=== PATIENT | female | born 1990 | race Two or more races ===

== ENCOUNTER → 2016-12-25 | Outpatient (REF) | payer MEDICAID ==
[2016-12-25 17:56] LABS: ALBUMIN 3.9 GM/DL (3.2-5.2); ALBUMIN/GLOBULIN RATIO 1.15 (1.00-1.93); ALKALINE PHOSPHATASE 52 U/L (45-117); ALT/SGPT 26 U/L (12-78); ANION GAP 7 MEQ/L (8-16); AST/SGOT 7 U/L (15-37); BILIRUBIN,TOTAL 1.5 MG/DL (0.2-1.0); BLOOD UREA NITROGEN 14 MG/DL (7-18); CALCIUM LEVEL 8.9 MG/DL (8.5-10.1); CARBON DIOXIDE LEVEL 26 MEQ/L (21-32); CHLORIDE LEVEL 107 MEQ/L (98-107); CHOLESTEROL LEVEL 202 MG/DL (<200); CREATININE FOR GFR 0.74 MG/DL (0.55-1.02); FREE T4 1.02 NG/DL (0.76-1.46); GLOMERULAR FILTRATION RATE > 60.0 (>60); GLUCOSE, FASTING 86 MG/DL (70-105); POTASSIUM SERUM 4.6 MEQ/L (3.5-5.1); SODIUM LEVEL 140 MEQ/L (136-145); TOTAL PROTEIN 7.3 GM/DL (6.4-8.2); TRIGLYCERIDES LEVEL 201 MG/DL (<150)
[2016-12-25 18:49] LABS: MEAN CORPUSCULAR HEMOGLOBIN 34.1 pg (27.0-33.0); MEAN CORPUSCULAR VOLUME 97.7 fl (80.0-96.0); WHITE BLOOD COUNT 10.7 K/mm3 (4.0-10.0)
== END ==
LOC: M SFHCPLAZ 11:16 → M LRY 11:24
PROVIDERS: ATTEND Nurse Practitioner Family
DX: M54.41 Lumbago with sciatica, right side (principal); I10 Essential (primary) hypertension; F33.1 Major depressive disorder, recurrent, moderate

== ENCOUNTER → 2017-04-18 | Outpatient (REF) | payer OTHER, MEDICAID | LOC: M LAB REF 10:03 | PROVIDERS: ATTEND Physician Assistant Medical | DX: N39.0 Urinary tract infection, site not specified (principal) ==

== ENCOUNTER → 2017-05-21 | Outpatient (CLI) | payer BC, OTHER, MEDICAID | LOC: M LRY 15:15 | DX: R06.2 Wheezing (principal) | CPT/HCPCS: 71046 ==

== ENCOUNTER → 2017-06-14 | Outpatient (REF) | payer MEDICAID, OTHER ==
[2017-06-14 13:56] LABS: HEMATOCRIT 40.3 % (36.0-47.0); HEMOGLOBIN 13.4 g/dl (12.0-16.0); MEAN CORPUSCULAR HEMOGLOBIN 32.9 pg (27.0-33.0); MEAN CORPUSCULAR HGB CONC 33.3 g/dl (32.0-36.5); PLATELET COUNT, AUTOMATED 276 10^3/uL (150-450); RED BLOOD COUNT 4.07 10^6/uL (4.00-5.40); RED CELL DISTRIBUTION WIDTH 11.9 % (11.5-14.5); WHITE BLOOD COUNT 8.7 10^3/uL (4.0-10.0)
[2017-06-14 14:14] LABS: ALBUMIN 3.9 GM/DL (3.2-5.2); ALBUMIN/GLOBULIN RATIO 1.18 (1.00-1.93); ALKALINE PHOSPHATASE 68 U/L (45-117); ALT/SGPT 49 U/L (12-78); ANION GAP 7 MEQ/L (8-16); AST/SGOT 24 U/L (7-37); BILIRUBIN,TOTAL 0.9 MG/DL (0.2-1.0); BLOOD UREA NITROGEN 13 MG/DL (7-18); CALCIUM LEVEL 8.6 MG/DL (8.5-10.1); CARBON DIOXIDE LEVEL 26 MEQ/L (21-32); CHLORIDE LEVEL 108 MEQ/L (98-107); CREATININE FOR GFR 0.77 MG/DL (0.55-1.30); GLOMERULAR FILTRATION RATE > 60.0 (>60); GLUCOSE, FASTING 83 MG/DL (70-100); LIPASE 80 U/L (73-393); POTASSIUM SERUM 4.3 MEQ/L (3.5-5.1); SODIUM LEVEL 141 MEQ/L (136-145); TOTAL PROTEIN 7.2 GM/DL (6.4-8.2)
== END ==
LOC: M SFHCPLAZ 12:50
DX: R10.84 Generalized abdominal pain (principal); R19.7 Diarrhea, unspecified

== ENCOUNTER → 2019-06-14 | Outpatient (REF) | payer OTHER ==
[2019-06-14 14:12] LABS: ALT/SGPT 37 U/L (12-78); BLOOD UREA NITROGEN 9 MG/DL (7-18); CALCIUM LEVEL 8.6 MG/DL (8.5-10.1); CARBON DIOXIDE LEVEL 28 MEQ/L (21-32); CHLORIDE LEVEL 108 MEQ/L (98-107); CREATININE FOR GFR 0.76 MG/DL (0.55-1.30); GLOMERULAR FILTRATION RATE > 60.0 (>60); GLUCOSE, FASTING 90 MG/DL (70-100); POTASSIUM SERUM 4.4 MEQ/L (3.5-5.1); SODIUM LEVEL 140 MEQ/L (136-145)
[2019-06-14 14:13] LABS: ALBUMIN 3.8 GM/DL (3.2-5.2); BILIRUBIN,TOTAL 0.6 MG/DL (0.2-1.0); CHOLESTEROL LEVEL 189 MG/DL (<200); CHOLESTEROL RISK RATIO 4.725 (<5); FREE T4 0.88 NG/DL (0.76-1.46); HDL CHOLESTEROL 40 MG/DL (>40); LDL CHOLESTEROL 110 MG/DL (<100); MAGNESIUM LEVEL 2.3 MG/DL (1.8-2.4); NON-HDL-C 149 MG/DL; TOTAL PROTEIN 7.4 GM/DL (6.4-8.2); TRIGLYCERIDES LEVEL 197 MG/DL (<150)
[2019-06-14 14:14] LABS: TOTAL 25(OH) VITAMIN D 11.3 NG/ML (30.0-100.0)
== END ==
LOC: M SFHCPLAZ 11:09
PROVIDERS: ATTEND Nurse Practitioner Family
DX: I10 Essential (primary) hypertension (principal); F33.1 Major depressive disorder, recurrent, moderate; E55.9 Vitamin D deficiency, unspecified

== ENCOUNTER → 2019-06-14 | Outpatient (CLI) | payer OTHER ==
--- NOTE | 2019-06-14 14:45 | REPPI ---
PA and lateral chest: Comparison is 05/21/2017. The lung muniz are clear. The cardiac size is normal. The brigid, mediastinum, and skeletal structures are unremarkable. Impression: Negative PA and lateral chest. There is no interval change. Electronically Signed by Jacek Pitts MD 06/14/2019 02:37 P
== END ==
LOC: M PLAIMG 11:25
PROVIDERS: ATTEND Nurse Practitioner Family
DX: I10 Essential (primary) hypertension (principal)

== ENCOUNTER → 2019-07-03 | Outpatient (CLI) | payer OTHER ==
[2019-07-03 12:14] LABS: BLOOD UREA NITROGEN 12 MG/DL (7-18); CALCIUM LEVEL 9.5 MG/DL (8.5-10.1); CARBON DIOXIDE LEVEL 29 MEQ/L (21-32); CHLORIDE LEVEL 104 MEQ/L (98-107); CREATININE FOR GFR 0.81 MG/DL (0.55-1.30); GLOMERULAR FILTRATION RATE > 60.0 (>60); GLUCOSE, FASTING 148 MG/DL (70-100); POTASSIUM SERUM 4.1 MEQ/L (3.5-5.1); SODIUM LEVEL 137 MEQ/L (136-145)
== END ==
LOC: M PLALAB 09:04
PROVIDERS: ATTEND Nurse Practitioner Family
DX: I10 Essential (primary) hypertension (principal)

== ENCOUNTER → 2020-05-28 | Outpatient (REF) | payer SELFPAY | LOC: EDSTATUS 10:15 → M LABSMTC 10:34 | PROVIDERS: ATTEND Pediatrics | DX: Z20.828 Contact with and (suspected) exposure to other viral communicable diseases (principal) ==

== ENCOUNTER → 2020-07-15 | Outpatient (REF) | payer OTHER ==
[2020-07-15 15:35] LABS: BLOOD UREA NITROGEN 11 MG/DL (7-18); CALCIUM LEVEL 9.6 MG/DL (8.5-10.1); CARBON DIOXIDE LEVEL 30 MEQ/L (21-32); CHLORIDE LEVEL 104 MEQ/L (98-107); CREATININE FOR GFR 0.75 MG/DL (0.55-1.30); GLOMERULAR FILTRATION RATE > 60.0 (>60); GLUCOSE, FASTING 81 MG/DL (70-100); POTASSIUM SERUM 4.5 MEQ/L (3.5-5.1); SODIUM LEVEL 138 MEQ/L (136-145)
== END ==
LOC: M SFHCPLAZ 13:27
PROVIDERS: ATTEND Family Medicine
DX: I10 Essential (primary) hypertension (principal)

== ENCOUNTER → 2020-08-05 | Outpatient (CLI) | payer OTHER ==
--- NOTE | 2020-08-05 19:57 | REP ---
INDICATION: HISTORY CARPAL TUNNEL. COMPARISON: None. TECHNIQUE: AP and lateral views of the right wrist. FINDINGS: AP and lateral views of the right wrist demonstrate normal bones, joints, and soft tissues. There is minimal negative ulnar variance. No erosive changes seen. Soft tissues are unremarkable. IMPRESSION: No acute abnormality. Minimal negative ulnar variance. <Electronically signed by Vasile Peterson > 08/05/[id number]
== END ==
LOC: M SOG 14:00
PROVIDERS: ATTEND Orthopaedic Surgery Sports Medicine
DX: G56.01 Carpal tunnel syndrome, right upper limb (principal)

== ENCOUNTER → 2020-08-22 | Outpatient (REF) | LOC: M LABSMTC 14:05 | PROVIDERS: ATTEND Pediatrics | DX: Z20.828 Contact with and (suspected) exposure to other viral communicable diseases (principal); Z11.59 Encounter for screening for other viral diseases ==

== ENCOUNTER → 2020-08-26 | Outpatient (REF) | payer OTHER | LOC: M SFHCPLAZ 17:06 | PROVIDERS: ATTEND Family Medicine | DX: Z12.4 Encounter for screening for malignant neoplasm of cervix (principal) ==

== ENCOUNTER → 2020-11-29 | Outpatient (CLI) | payer OTHER | LOC: M LABSMTC 12:54 | PROVIDERS: ATTEND Anesthesiology | DX: Z20.828 Contact with and (suspected) exposure to other viral communicable diseases (principal); Z11.59 Encounter for screening for other viral diseases ==

== ENCOUNTER 2020-12-04 08:26 | Day surgery (SDC) | payer OTHER ==
[~2020-12-04] VITALS: Ht 167.6 cm; Wt 142.3 kg
[~2020-12-04 08:26] MED LIST: AIRD1INH IN; ALBU8.5H INH; ERGO500029 PO; FLUT1INH INH; FLUTISP; LEXA1TAB PO; LIDOCAINE 1% MDV 20ML VIAL SQ PRN; LIDOCAINE 2% 100MG/5ML SDV (FOR ANES.) As Ordered ONE; LISI10TA22 PO; LR 1,000 ML IV ONE; MIDAZOLAM INJ 2MG/2ML VIAL (J2250 PER 1MG) As Ordered ONE; ceFAZolin SOD 2 GM in IV 1 EA IV ONE; fentaNYL 100 MCG/2 ML INJECTION (J3010) As Ordered ONE; propofoL 200 MG/20 ML VIAL As Ordered ONE
[2020-12-04] MEDS ORDERED: BUPIVACAINE/EPIN 0.25% 30 ML VIAL As Ordered ONE (08:59)
[2020-12-04] MEDS ORDERED: ACETAMINOPHEN 1000MG 100ML IV BTL (OFIRMEV) (J0131 PER 10MG) As Ordered ONE (09:42)
--- NOTE | 2020-12-04 10:09 | ROOPDOC ---
[facility] Report Of Operation Report of Operation DATE OF PROCEDURE: 12/04/20 PREPROCEDURE DIAGNOSES: Right carpal tunnel syndrome. POSTPROCEDURE DIAGNOSES: Same. PROCEDURE PERFORMED: Right open carpal tunnel release. SURGEON: Dr. Chris Egan MD [employer] WORKER: ANESTHESIA: Local/MAC Dr Douglas 6 cc quarter percent Marcaine with epinephrine. ESTIMATED BLOOD LOSS: Approximately 10 mL. COMPLICATIONS: None. REMARKS: None. FINDINGS: Right carpal tunnel syndrome SPECIMENS REMOVED: None PROCEDURE NOTE: This 30-year-old female had signs and symptoms consistent with right carpal tunnel syndrome. After discussion of the pros and cons risks and benefits of nonoperative versus open carpal tunnel release she wished to go ahead with surgery. I saw the patient in preoperative holding marked the right upper extremity. She had no further questions and wished to proceed. DESCRIPTION OF PROCEDURE: Patient was brought to the operating theater. They were placed supine on the operating room table. Hand table was used. Limb was prepped and draped in the usual sterile fashion. I used chlorhexidine-based prep solution allowing over 3 minutes drying time prior to draping. 2 g of IV Ancef was given prior to starting the case. Local/MAC anesthesia was used. Preoperative timeout was performed confirming the site the patient and the surgery. I began by infiltrating 6 mL of 0.25 percent Marcaine with epinephrine in and around the proposed incision site. This was on the palmar surface just distal to the wrist crease longitudinally in line with the fourth digit. The incision length was approximately 2 cm. I allowed the local anesthetic time to work. I carried the dissection down through skin and subcutaneous tissue to meticulous hemostasis. I incised the palmar fascia in line with the skin incision. I incised the transverse carpal ligament in line with the skin incision fully proximally and distally. Nerve appeared in continuity throughout the case. I thoroughly irrigated the wound with normal saline. I closed the subcutaneous tissues with 2-0 Vicryl sutures and the skin with 3-0 Ethilon in a horizontal mattress fashion. Wound cleaned with wet and dry dressing followed by application of non stick dressing, 4 x 8 gauze and overwrapped with Shanell type dressing. Patient was woken up from their sedation and transferred off the operating room table and taken to postanesthetic care unit in stable condition. All sponge, needle, instrument counts were correct. No complications. The patient is to start immediate hand wrist and elbow exercises but avoid heavy lifting and gripping-type activities for the first 6 weeks. They will be discharged home according to day surgery criteria. They can change the dressing postoperative day 1 and avoid showering over top or getting it wet for the first 14 days. Follow-up in the office in 2 weeks' time. Postoperative wound instructions were given. It was recommended to keep the wound clean and dry. Dressing changes as needed. It was reinforced with the patient that they should call us or be seen immediately for redness, drainage, or fever. Risk factors for harms from taking opioid medications discussed and assessed including but not limited to personal or family history of substance use disorder, anxiety or depression, , age 65 or older, COPD or other underlying respiratory conditions, and renal or hepatic insufficiency. Discussed with patient concerns and determined any harms they may experience or be currently experiencing such as nausea or constipation, feeling sedated or confused, breathing interruptions during sleep, or taking or craving more opioids than prescribed or difficulty controlling use (addiction). Discussed early warning signs of overdose including confusion, sedation, slurred speech, abnormal gait. CHRIS EGAN MD Dec 04, 2020 10:09
[2020-12-04] MEDS ORDERED: ONDANSETRON 4MG/2ML VIAL IV PRN (10:40)
[2020-12-04] MEDS ORDERED: LR 1,000 ML IV SCH (10:40)
[2020-12-04] MEDS ORDERED: oxyCODONE 5MG TAB PO PRN (10:40)
[2020-12-04 11:00] VITALS: BP 137/90
== END 2020-12-04 11:15 | disposition home or self-care (01) ==
LOC: M SDC 08:26
PROVIDERS: ATTEND Orthopaedic Surgery Sports Medicine
DX: G56.01 Carpal tunnel syndrome, right upper limb (principal); I10 Essential (primary) hypertension; J45.909 Unspecified asthma, uncomplicated; F32.9 Major depressive disorder, single episode, unspecified; F41.9 Anxiety disorder, unspecified; Z79.899 Other long term (current) drug therapy
CPT/HCPCS: 64721; 81025; J0131; J0690; J2250; J3010

== ENCOUNTER → 2021-03-11 | Outpatient (REF) ==
[~2021-03-11] MED LIST changes: -LIDOCAINE 1% MDV 20ML VIAL SQ PRN; -LIDOCAINE 2% 100MG/5ML SDV (FOR ANES.) As Ordered ONE; -LR 1,000 ML IV ONE; -MIDAZOLAM INJ 2MG/2ML VIAL (J2250 PER 1MG) As Ordered ONE; -ceFAZolin SOD 2 GM in IV 1 EA IV ONE; -fentaNYL 100 MCG/2 ML INJECTION (J3010) As Ordered ONE; -propofoL 200 MG/20 ML VIAL As Ordered ONE
== END ==
LOC: M EMP 08:00
PROVIDERS: ATTEND Family Medicine
DX: Z11.52 Encounter for screening for COVID-19 (principal); Z20.822 Contact with and (suspected) exposure to COVID-19

== ENCOUNTER → 2021-03-14 | Outpatient (REF) ==
[2021-03-14 12:02] LABS: RSV AMPLIFICATION NEGATIVE (NEGATIVE)
== END ==
LOC: M EMP 11:05
PROVIDERS: ATTEND Family Medicine
DX: Z20.828 Contact with and (suspected) exposure to other viral communicable diseases (principal); Z11.52 Encounter for screening for COVID-19

== ENCOUNTER → 2021-03-26 | Outpatient (REF) ==
[2021-03-26 14:05] LABS: RSV AMPLIFICATION NEGATIVE (NEGATIVE)
== END ==
LOC: M LABSMTC 11:01
PROVIDERS: ATTEND Family Medicine
DX: Z20.822 Contact with and (suspected) exposure to COVID-19 (principal)

== ENCOUNTER → 2021-05-06 | Outpatient (REF) ==
[2021-05-06 14:52] LABS: RSV AMPLIFICATION NEGATIVE (NEGATIVE)
== END ==
LOC: M EMP 08:21
PROVIDERS: ATTEND Family Medicine
DX: Z20.822 Contact with and (suspected) exposure to COVID-19 (principal)

== ENCOUNTER → 2021-05-27 | Outpatient (REF) | LOC: M LABSMTC 13:15 | PROVIDERS: ATTEND Pediatrics | DX: Z20.822 Contact with and (suspected) exposure to COVID-19 (principal) ==

== ENCOUNTER → 2021-08-21 | Outpatient (REF) | LOC: M LABSMTC 11:05 | PROVIDERS: ATTEND Family Medicine | DX: Z11.52 Encounter for screening for COVID-19 (principal) ==

== ENCOUNTER → 2022-02-27 | Outpatient (CLI) | payer OTHER ==
[2022-02-27 17:23] LABS: BASO # 0.1 10^3/uL (0.0-0.2); BASO % 0.3 % (0.0-1.0); EOS # 0.3 10^3/uL (0.0-0.5); EOS % 1.7 % (0.0-3.0); HEMATOCRIT 39.6 % (36.0-47.0); LYMPH # 4.1 10^3/uL (1.5-5.0); LYMPH % 25.7 % (24.0-44.0); MEAN CORPUSCULAR HEMOGLOBIN 32.9 pg (27.0-33.0); MEAN CORPUSCULAR HGB CONC 32.8 g/dl (32.0-36.5); MEAN CORPUSCULAR VOLUME 100.3 fl (80.0-96.0); MONO # 0.8 10^3/uL (0.0-0.8); MONO % 5.2 % (2.0-8.0); NEUTROPHILS # 10.7 10^3/uL (1.5-8.5); NEUTROPHILS % 66.5 % (36.0-66.0); PLATELET COUNT, AUTOMATED 357 10^3/uL (150-450); RED BLOOD COUNT 3.95 10^6/uL (4.00-5.40)
[2022-02-27 17:57] LABS: HCG, SERUM QUALITATIVE NEGATIVE (NEGATIVE)
[2022-02-27 18:17] LABS: ALBUMIN 3.6 GM/DL (3.2-5.2); ALT/SGPT 33 U/L (12-78); BILIRUBIN,TOTAL 0.4 MG/DL (0.2-1.0); BLOOD UREA NITROGEN 17 MG/DL (7-18); CALCIUM LEVEL 8.6 MG/DL (8.5-10.1); CARBON DIOXIDE LEVEL 27 MEQ/L (21-32); CHLORIDE LEVEL 107 MEQ/L (98-107); CREATININE FOR GFR 0.79 MG/DL (0.55-1.30); FREE T4 0.77 NG/DL (0.76-1.46); GLOMERULAR FILTRATION RATE > 60.0 (>60); GLUCOSE, FASTING 117 MG/DL (70-100); POTASSIUM SERUM 4.2 MEQ/L (3.5-5.1); SODIUM LEVEL 138 MEQ/L (136-145); TOTAL PROTEIN 7.6 GM/DL (6.4-8.2)
[2022-02-27 19:03] LABS: FOLLICLE STIMULATING HORMONE 2.5 mIU/mL; LUTEINIZING HORMONE 0.7 mIU/mL; TESTOSTERONE 15 NG/DL (14-76)
== END ==
LOC: M LAB 16:34
PROVIDERS: ATTEND Physician Assistant
DX: N91.2 Amenorrhea, unspecified (principal)

== ENCOUNTER → 2022-03-06 | Outpatient (CLI) | payer OTHER ==
[2022-03-06 18:10] LABS: APPEARANCE, URINE MANUAL CLEAR (CLEAR); BILIRUBIN, URINE MANUAL NEGATIVE (NEGATIVE); BLOOD URINE MANUAL NEGATIVE (NEGATIVE); COLOR, URINE MANUAL YELLOW (YELLOW); GLUCOSE, URINE (UA) MANUAL NEGATIVE (NEGATIVE); KETONE, URINE MANUAL NEGATIVE (NEGATIVE); LEUKOCYTE ESTERASE, URINE MAN NEGATIVE (NEGATIVE); NITRITE, URINE MANUAL NEGATIVE (NEGATIVE); PROTEIN, URINE MANUAL NEGATIVE (NEGATIVE); SPECIFIC GRAVITY,URINE MANUAL 1.015 (1.002-1.035); UROBILINOGEN, URINE MANUAL NORMAL (NORMAL)
[2022-03-06 18:22] LABS: BASO # 0.1 10^3/uL (0.0-0.2); BASO % 0.4 % (0.0-1.0); EOS # 0.3 10^3/uL (0.0-0.5); EOS % 2.1 % (0.0-3.0); HEMATOCRIT 39.7 % (36.0-47.0); HEMOGLOBIN 12.8 g/dl (12.0-15.5); LYMPH # 3.1 10^3/uL (1.5-5.0); LYMPH % 24.7 % (24.0-44.0); MEAN CORPUSCULAR HEMOGLOBIN 32.7 pg (27.0-33.0); MEAN CORPUSCULAR HGB CONC 32.2 g/dl (32.0-36.5); MEAN CORPUSCULAR VOLUME 101.3 fl (80.0-96.0); MONO # 0.7 10^3/uL (0.0-0.8); MONO % 5.1 % (2.0-8.0); NEUTROPHILS # 8.5 10^3/uL (1.5-8.5); NEUTROPHILS % 67.1 % (36.0-66.0); PLATELET COUNT, AUTOMATED 355 10^3/uL (150-450); RED BLOOD COUNT 3.92 10^6/uL (4.00-5.40); WHITE BLOOD COUNT 12.7 10^3/uL (4.0-10.0)
[2022-03-06 19:03] LABS: ERYTHROCYTE SEDIMENTATION RATE 29 mm/hr (0-20)
== END ==
LOC: M PLALAB 15:36
PROVIDERS: ATTEND Physician Assistant
DX: D72.9 Disorder of white blood cells, unspecified (principal)

== ENCOUNTER → 2022-03-20 | Outpatient (CLI) | payer OTHER ==
[2022-03-20 17:59] LABS: BASO # 0.1 10^3/uL (0.0-0.2); BASO % 0.4 % (0.0-1.0); EOS # 0.3 10^3/uL (0.0-0.5); EOS % 1.8 % (0.0-3.0); HEMATOCRIT 39.6 % (36.0-47.0); HEMOGLOBIN 13.1 g/dl (12.0-15.5); LYMPH # 3.6 10^3/uL (1.5-5.0); LYMPH % 24.4 % (24.0-44.0); MEAN CORPUSCULAR HEMOGLOBIN 32.6 pg (27.0-33.0); MEAN CORPUSCULAR HGB CONC 33.1 g/dl (32.0-36.5); MEAN CORPUSCULAR VOLUME 98.5 fl (80.0-96.0); MONO % 7.1 % (2.0-8.0); NEUTROPHILS # 9.7 10^3/uL (1.5-8.5); NEUTROPHILS % 65.6 % (36.0-66.0); PLATELET COUNT, AUTOMATED 348 10^3/uL (150-450); RED BLOOD COUNT 4.02 10^6/uL (4.00-5.40); WHITE BLOOD COUNT 14.7 10^3/uL (4.0-10.0)
== END ==
LOC: M PLALAB 16:06
PROVIDERS: ATTEND Physician Assistant
DX: D72.9 Disorder of white blood cells, unspecified (principal)

== ENCOUNTER → 2022-05-14 | Outpatient (CLI) | payer OTHER ==
[2022-05-14 15:29] LABS: BASO # 0.1 10^3/uL (0.0-0.2); BASO % 0.4 % (0.0-1.0); EOS # 0.3 10^3/uL (0.0-0.5); EOS % 2.1 % (0.0-3.0); HEMATOCRIT 39.2 % (36.0-47.0); HEMOGLOBIN 12.9 g/dl (12.0-15.5); LYMPH # 3.7 10^3/uL (1.5-5.0); LYMPH % 29.1 % (24.0-44.0); MEAN CORPUSCULAR HEMOGLOBIN 32.6 pg (27.0-33.0); MEAN CORPUSCULAR HGB CONC 32.9 g/dl (32.0-36.5); MONO # 0.9 10^3/uL (0.0-0.8); MONO % 6.9 % (2.0-8.0); NEUTROPHILS # 7.7 10^3/uL (1.5-8.5); NEUTROPHILS % 60.9 % (36.0-66.0); PLATELET COUNT, AUTOMATED 338 10^3/uL (150-450); RED BLOOD COUNT 3.96 10^6/uL (4.00-5.40); WHITE BLOOD COUNT 12.6 10^3/uL (4.0-10.0)
[2022-05-14 15:42] LABS: ERYTHROCYTE SEDIMENTATION RATE 39 mm/hr (0-20)
[2022-05-14 16:00] LABS: C REACTIVE PROTEIN QUANTITATIV 1.2 MG/DL (<1.0)
[2022-05-16 12:08] LABS: ANTINUCLEAR ANTIBODIES DIRECT Negative (Negative)
== END ==
LOC: M PLALAB 13:10
PROVIDERS: ATTEND Physician Assistant
DX: D72.829 Elevated white blood cell count, unspecified (principal)

== ENCOUNTER → 2022-09-16 | Outpatient (CLI) | payer OTHER ==
[~2022-09-16] MED LIST changes: +FLUT50SP17; -FLUTISP
== END ==
LOC: M WHC 07:34
PROVIDERS: ATTEND Physician Assistant
DX: E28.2 Polycystic ovarian syndrome (principal)

== ENCOUNTER → 2023-02-18 | Outpatient (REF) | LOC: M EMP 14:02 | PROVIDERS: ATTEND Family Medicine | DX: Z11.52 Encounter for screening for COVID-19 (principal) ==

== ENCOUNTER → 2023-03-04 | Outpatient (CLI) | payer OTHER ==
[2023-03-04 15:56] LABS: BASO # 0.1 10^3/uL (0.0-0.2); BASO % 0.5 % (0.0-1.0); EOS # 0.4 10^3/uL (0.0-0.5); EOS % 3.9 % (0.0-3.0); HEMATOCRIT 39.1 % (36.0-47.0); LYMPH # 3.2 10^3/uL (1.5-5.0); LYMPH % 29.7 % (24.0-44.0); MEAN CORPUSCULAR HEMOGLOBIN 33.8 pg (27.0-33.0); MEAN CORPUSCULAR HGB CONC 33.2 g/dl (32.0-36.5); MEAN CORPUSCULAR VOLUME 101.6 fl (80.0-96.0); MONO # 0.7 10^3/uL (0.0-0.8); MONO % 6.5 % (2.0-8.0); NEUTROPHILS # 6.4 10^3/uL (1.5-8.5); NEUTROPHILS % 58.8 % (36.0-66.0); PLATELET COUNT, AUTOMATED 344 10^3/uL (150-450); RED BLOOD COUNT 3.85 10^6/uL (4.00-5.40); WHITE BLOOD COUNT 10.9 10^3/uL (4.0-10.0)
[2023-03-04 16:10] LABS: HEMOGLOBIN A1c 4.6 % (4.0-6.0)
[2023-03-04 16:27] LABS: TOTAL 25(OH) VITAMIN D 25.4 NG/ML (20.0-100.0)
[2023-03-04 16:28] LABS: THYROID STIMULATING HORMONE 1.532 uIU/ML (0.55-4.78)
[2023-03-04 16:29] LABS: FERRITIN 57.5 NG/ML (7.3-270.7); FREE T4 0.92 NG/DL (0.89-1.76)
[2023-03-04 16:30] LABS: TOTAL IRON BINDING CAPACITY 297 UG/DL (250-425); VITAMIN B12 LEVEL 283 PG/ML (211-911)
[2023-03-04 16:31] LABS: ALBUMIN 3.8 G/DL (3.2-5.2); ALKALINE PHOSPHATASE 58 U/L (46-116); ALT/SGPT 30 U/L (7.0-40); AST/SGOT 15 U/L (<34); BILIRUBIN,TOTAL 0.6 MG/DL (0.3-1.2); BLOOD UREA NITROGEN 11 MG/DL (9-23); CALCIUM LEVEL 9.1 MG/DL (8.5-10.1); CARBON DIOXIDE LEVEL 24 MMOL/L (20-31); CHLORIDE LEVEL 105 MMOL/L (98-107); CHOLESTEROL LEVEL 201 MG/DL (<200); CHOLESTEROL RISK RATIO 4.76 (<5); CREATININE FOR GFR 0.67 MG/DL (0.55-1.30); GLOMERULAR FILTRATION RATE > 60.0 (>60); GLUCOSE, FASTING 88 MG/DL (60-100); HDL CHOLESTEROL 42.2 MG/DL (>40); IRON (FE) 64 UG/DL (50-170); NON-HDL-C 158.8 MG/DL; PERCENT SATURATION 21.5 % (13.2-45.0); POTASSIUM SERUM 4.6 MMOL/L (3.5-5.1); SODIUM LEVEL 140 MMOL/L (136-145); TOTAL PROTEIN 7.2 G/DL (5.7-8.2); TRIGLYCERIDES LEVEL 269 MG/DL (<150)
== END ==
LOC: M PLALAB 09:56
PROVIDERS: ATTEND Physician Assistant
DX: E66.01 Morbid (severe) obesity due to excess calories (principal); Z86.2 Personal history of diseases of the blood and blood-forming organs and certain disorders involving the immune mechanism; I10 Essential (primary) hypertension; E55.9 Vitamin D deficiency, unspecified

== ENCOUNTER → 2023-06-04 | Outpatient (CLI) | payer OTHER ==
[~2023-06-04] MED LIST changes: -FLUT50SP17; +FLUTISP
[2023-06-04 14:13] LABS: HEMOGLOBIN A1c 5.1 % (4.0-6.0)
== END ==
LOC: M PLALAB 09:47
PROVIDERS: ATTEND Obstetrics & Gynecology
DX: N97.9 Female infertility, unspecified (principal)

== ENCOUNTER → 2023-06-09 | Outpatient (REF) | LOC: M EMP 08:57 | PROVIDERS: ATTEND Family Medicine | DX: Z20.822 Contact with and (suspected) exposure to COVID-19 (principal) ==

== ENCOUNTER → 2024-02-03 | Outpatient (REF) | LOC: M EMP 11:42 | PROVIDERS: ATTEND Family Medicine | DX: Z11.52 Encounter for screening for COVID-19 (principal) ==

== ENCOUNTER → 2024-03-27 | Outpatient (REF) | payer OTHER, MEDICAID ==
[2024-03-30 06:10] LABS: AMPHETAMINE SCREEN, URINE Negative ng/mL (Cutoff=1000); BARBITURATES SCREEN, URINE Negative ng/mL (Cutoff=200); BENZODIAZEPINES, URINE SCREEN Negative ng/mL (Cutoff=200); CANNABINOID SCREEN, URINE See Final Results ng/mL (Cutoff=20); CANNABINOID, URINE Positive (Cutoff=20); CARBOXY THC (GC/MS) >300 ng/mL (Cutoff=10); COCAINE SCREEN, URINE Negative ng/mL (Cutoff=300); METHADONE, URINE SCREEN Negative ng/mL (Cutoff=300); OPIATE SCREEN, URINE Negative ng/mL (Cutoff=300); OXYCODONE, SCREEN, URINE Negative ng/mL (Cutoff=100); PCP SCREEN, URINE Negative ng/mL (Cutoff=25); SPECIFIC GRAVITY, URINE 1.025 (.); pH, URINE 5.2 (4.5-8.9)
== END ==
LOC: M SFHCPLAZ 12:51
PROVIDERS: ATTEND Nurse Practitioner Family
DX: Z51.81 Encounter for therapeutic drug level monitoring (principal); Z79.899 Other long term (current) drug therapy

== ENCOUNTER → 2024-06-16 | Outpatient (CLI) | payer OTHER ==
[2024-06-16 14:07] LABS: URIC ACID 4.7 MG/DL (3.1-7.8)
[2024-06-16 14:08] LABS: HEMATOCRIT 34.1 % (36.0-47.0); HEMOGLOBIN 11.6 g/dl (12.0-15.5); MEAN CORPUSCULAR HEMOGLOBIN 34.2 pg (27.0-33.0); MEAN CORPUSCULAR VOLUME 100.6 fl (80.0-96.0); PLATELET COUNT, AUTOMATED 339 10^3/uL (150-450); RED BLOOD COUNT 3.39 10^6/uL (4.00-5.40); WHITE BLOOD COUNT 12.7 10^3/uL (4.0-10.0)
[2024-06-16 14:09] LABS: LDH LACTATE DEHYDROGENASE 116 U/L (120-246)
[2024-06-16 14:10] LABS: ALT/SGPT 18 U/L (7.0-40); AST/SGOT 8 U/L (<34); BILIRUBIN,TOTAL 0.5 MG/DL (0.3-1.2); CREATININE FOR GFR 0.52 MG/DL (0.55-1.30); GLOMERULAR FILTRATION RATE > 60.0 (>60)
[2024-06-16 14:40] LABS: CREATININE,RANDOM URINE 51.2 MG/DL
[2024-06-16 14:42] LABS: HIV 1&2 SCREEN NEGATIVE (NEGATIVE)
[2024-06-16 14:43] LABS: TOTAL PROTEIN,RANDOM URINE < 6.0 MG/DL (0.0-14.0)
[2024-06-16 14:50] LABS: HEPATITIS C VIRUS ABY INDEX 0.13 INDEX (<0.8)
[2024-06-16 15:05] LABS: GC DNA AMPLIFICATION NEGATIVE (NEGATIVE)
== END ==
LOC: M PLALAB 10:52
PROVIDERS: ATTEND Advanced Practice Midwife
DX: O10.019 Pre-existing essential hypertension complicating pregnancy, unspecified trimester (principal); Z3A.00 Weeks of gestation of pregnancy not specified

== ENCOUNTER → 2024-06-16 | Outpatient (REF) | payer OTHER, MEDICAID | LOC: M PLALAB 10:36 | PROVIDERS: ATTEND Advanced Practice Midwife | DX: Z34.81 Encounter for supervision of other normal pregnancy, first trimester (principal) ==

== ENCOUNTER → 2024-06-22 | Outpatient (REF) | payer OTHER, MEDICAID | LOC: M SFHCPLAZ 14:49 | PROVIDERS: ATTEND Physician Assistant Medical | DX: J06.9 Acute upper respiratory infection, unspecified (principal) ==

== ENCOUNTER → 2024-08-11 | Outpatient (CLI) | payer OTHER | LOC: M WHC 07:06 | PROVIDERS: ATTEND Advanced Practice Midwife | DX: Z34.82 Encounter for supervision of other normal pregnancy, second trimester (principal); Z3A.20 20 weeks gestation of pregnancy ==

== ENCOUNTER → 2024-09-01 | Outpatient (CLI) | payer OTHER | LOC: M WHC 15:02 | PROVIDERS: ATTEND Obstetrics & Gynecology | DX: Z36.2 Encounter for other antenatal screening follow-up (principal); Z3A.23 23 weeks gestation of pregnancy ==

== ENCOUNTER → 2024-09-12 | Outpatient (CLI) | payer OTHER ==
[2024-09-12 17:15] LABS: GLUCOSE CHALLENGE TEST 1 HOUR 149 MG/DL (LESS THAN 140)
[2024-09-12 17:29] LABS: HEMATOCRIT 30.7 % (36.0-47.0); HEMOGLOBIN 10.1 g/dl (12.0-15.5); MEAN CORPUSCULAR HEMOGLOBIN 33.6 pg (27.0-33.0); MEAN CORPUSCULAR HGB CONC 32.9 g/dl (32.0-36.5); PLATELET COUNT, AUTOMATED 300 10^3/uL (150-450); RED BLOOD COUNT 3.01 10^6/uL (4.00-5.40); WHITE BLOOD COUNT 15.3 10^3/uL (4.0-10.0)
[2024-09-12 18:09] LABS: HIV 1&2 SCREEN NEGATIVE (NEGATIVE)
[2024-09-12 18:16] LABS: HEPATITIS C VIRUS ABY INDEX < 0.02 INDEX (<0.8)
[2024-09-12 18:59] LABS: Trichomonas vaginalis (AMP) NOT DETECTED (NEGATIVE)
[2024-09-12 19:22] LABS: GC DNA AMPLIFICATION NEGATIVE (NEGATIVE)
== END ==
LOC: M PLALAB 14:23
PROVIDERS: ATTEND Obstetrics & Gynecology
DX: Z34.92 Encounter for supervision of normal pregnancy, unspecified, second trimester (principal)

== ENCOUNTER → 2024-09-22 | Outpatient (CLI) | payer OTHER | LOC: M LAB 07:44 | PROVIDERS: ATTEND Advanced Practice Midwife | DX: O99.810 Abnormal glucose complicating pregnancy (principal); Z3A.26 26 weeks gestation of pregnancy ==

== ENCOUNTER → 2024-11-09 | Outpatient (CLI) | payer OTHER | LOC: M WHC 06:36 | PROVIDERS: ATTEND Advanced Practice Midwife | DX: O10.013 Pre-existing essential hypertension complicating pregnancy, third trimester (principal); Z3A.33 33 weeks gestation of pregnancy ==

== ENCOUNTER → 2024-11-23 | Outpatient (REF) | payer OTHER, MEDICAID ==
[~2024-11-23] MED LIST changes: +ASPI81TA26 PO; +FERR325T3 PO; +KLON1TAB13 PO; +LABE200T5 PO; +METF10004 PO; +METF500T13 PO; +MULTTAB20 PO
== END ==
LOC: M SFHCWAGY 10:20
PROVIDERS: ATTEND Advanced Practice Midwife
DX: O24.415 Gestational diabetes mellitus in pregnancy, controlled by oral hypoglycemic drugs (principal)